=== PATIENT | male | born 1980 | race Caucasian/White ===

== ENCOUNTER 2023-01-18 09:12 | Emergency (ER) | payer MEDICAID ==
[~2023-01-18] VITALS: Wt 93.0 kg
[~2023-01-18 09:12] MED LIST: AMOXICILLIN500 M2 PO; ANAPROX DS550 MG PO; DARVOCET N 1001 TAB PO; DIFLUCAN150 MG PO; FLEXERIL10 MG PO; HYDROCODONE BIT1 T11 PO; KEFLEX500 MG PO; MEDROL DOSEPAK4 MG PO; NAPROXEN SOD.550 MG PO; PERCOCET 325 MG1 TA7 PO; TIZANIDINE HCL4 MG PO; Tobrex Ophth S2.5 ML OPH
[2023-01-18] MEDS ORDERED: PREDNISONE50 MG PO (12:24)
== END 2023-01-18 12:27 | disposition home or self-care (01) ==
LOC: ED 09:12
DX: S59.902A Unspecified injury of left elbow, initial encounter (principal); X58.XXXA Exposure to other specified factors, initial encounter; Y93.89 Activity, other specified; Y92.89 Other specified places as the place of occurrence of the external cause; Y99.8 Other external cause status

== ENCOUNTER 2023-06-21 10:27 | Emergency (ER) | payer MEDICAID ==
[~2023-06-21] VITALS: Ht 187.9 cm; Wt 88.5 kg
[~2023-06-21 10:27] MED LIST changes: +PREDNISONE50 MG PO
[2023-06-21 11:27] LABS: BASO # 0.1 10*3/uL (0.0-0.1); EOS # 0.3 10*3/uL (0.0-0.4); EOS % 3.9 % (1.0-4.0); HEMATOCRIT 47.9 % (42.0-52.0); LYMPH # 2.1 10*3/uL (1.3-4.4); LYMPH % 28.6 % (27.0-41.0); MEAN CELL VOLUME 84.3 fl (80.0-94.0); MEAN CORPUSCULAR HGB 28.7 pg (27.0-31.0); MEAN PLATELET VOLUME 9.1 fl (9.6-12.3); MONO # 0.6 10*3/uL (0.1-1.0); MONO % 8.7 % (3.0-9.0); NEUT # 4.2 10*3/uL (2.3-7.9); NEUT % 57.7 % (47.0-73.0); PLATELET COUNT AUTOMATED 251 10*3/uL (130-400); RED BLOOD COUNT 5.68 10*6/uL (4.50-5.90); RED CELL DISTRI WIDTH 12.4 % (0-14.5); WHITE BLOOD COUNT 7.2 10*3/uL (4.8-10.8)
[2023-06-21 11:58] LABS: ALKALINE PHOSPHATASE 51 U/L (46-116); BUN 14 mg/dl (9-23); CHLORIDE 108 mmol/L (98-107); POTASSIUM 3.8 mmol/L (3.4-5.1); SGPT/ALT 12 U/L (5-49); TOTAL PROTEIN 6.9 gm/dL (6.0-8.0)
[2023-06-21] MEDS ORDERED: AMOX-CLAV 875-1 EACH PO (13:56)
== END 2023-06-21 14:13 | disposition home or self-care (01) ==
LOC: ED 10:27
PROVIDERS: Nurse Practitioner Family
DX: M70.52 Other bursitis of knee, left knee (principal); J01.90 Acute sinusitis, unspecified; Y93.89 Activity, other specified

== ENCOUNTER 2024-04-11 16:46 | Emergency (ER) | payer MEDICAID ==
[~2024-04-11] VITALS: Ht 190.5 cm; Wt 106.6 kg
[~2024-04-11 16:46] MED LIST changes: +AMOX-CLAV 875-1 EACH PO
[2024-04-11] MEDS ORDERED: Doxycycline Hyclate 100 MG CAP PO ONE (19:50)
[2024-04-11] MEDS ORDERED: VIBRAMYCIN100 MG PO (20:17)
== END 2024-04-11 20:10 | disposition home or self-care (01) ==
LOC: ED 16:46
DX: S30.861A Insect bite (nonvenomous) of abdominal wall, initial encounter (principal); W57.XXXA Bitten or stung by nonvenomous insect and other nonvenomous arthropods, initial encounter; Y93.89 Activity, other specified; Y92.89 Other specified places as the place of occurrence of the external cause; Y99.8 Other external cause status

== ENCOUNTER 2024-12-25 10:28 | Emergency (ER) | payer MEDICAID ==
[~2024-12-25] VITALS: Ht 190.5 cm; Wt 103.4 kg
[~2024-12-25 10:28] MED LIST changes: +VIBRAMYCIN100 MG PO
[2024-12-25] MEDS ORDERED: Dexamethasone Sodium Phospha 20 MG/5 ML VIAL IM ONE (11:15)
[2024-12-25] MEDS ORDERED: diazePAM 5 MG TAB PO ONE (11:20)
[2024-12-25] MEDS ORDERED: Acetaminophen/Oxycodone 5 MG/325 MG TABLET PO ONE (11:20)
[2024-12-25] MEDS ORDERED: Ondansetron Hydrochloride 4 MG TAB PO ONE (11:20)
[2024-12-25] MEDS ORDERED: PERCOCET 5-3251 EACH PO (11:21)
[2024-12-25] MEDS ORDERED: METHOCARBAMOL750 M1 PO (11:21)
[2024-12-25] MEDS ORDERED: PREDNISONE20 M1 PO (11:21)
[2024-12-25] MEDS ORDERED: NAPROSYN500 MG PO (11:21)
== END 2024-12-25 11:52 | disposition home or self-care (01) ==
LOC: ED 10:28
DX: S39.012A Strain of muscle, fascia and tendon of lower back, initial encounter (principal); X50.1XXA Overexertion from prolonged static or awkward postures, initial encounter; Y93.89 Activity, other specified; Y92.89 Other specified places as the place of occurrence of the external cause; Y99.8 Other external cause status

== ENCOUNTER 2024-12-30 11:13 | Emergency (ER) | payer MEDICAID ==
[~2024-12-30] VITALS: Ht 190.5 cm; Wt 108.0 kg
[~2024-12-30 11:13] MED LIST changes: +METHOCARBAMOL750 M1 PO; +NAPROSYN500 MG PO; +PERCOCET 5-3251 EACH PO; +PREDNISONE20 M1 PO
[2024-12-30] MEDS ORDERED: Acetaminophen/Oxycodone 5 MG/325 MG TABLET PO ONE ×2 (12:00→15:25)
[2024-12-30 12:07] LABS: BILIRUBIN Negative (Negative); BLOOD Negative (Negative); CLARITY Clear (Clear); COLOR Yellow (Yellow); KETONE Negative (Negative); LEUKO ESTERASE Negative (Negative); NITRITE Negative (Negative); PH 6.5 (4.5-8.0); SPECIFIC GRAVITY 1.020 (1.001-1.030); UROBILINOGEN 0.2 E.U./dl (0.0-1.0)
[2024-12-30 12:15] LABS: EPITHELIAL CELLS 0-2; WBC 0-2 wbc/hpf (0-5)
[2024-12-30] MEDS ORDERED: Dexamethasone Sodium Phospha 10 MG/1 ML VIAL IM ONE (15:25)
[2024-12-30] MEDS ORDERED: NAPROSYN500 MG PO (15:28)
[2024-12-30] MEDS ORDERED: METHOCARBAMOL750 M1 PO (15:28)
[2024-12-30] MEDS ORDERED: PREDNISONE20 M1 PO (15:28)
== END 2024-12-30 15:35 | disposition home or self-care (01) ==
LOC: ED 11:13
PROVIDERS: Nurse Practitioner Family
DX: M54.50 Low back pain, unspecified (principal)